=== PATIENT | female | born 1945 | race Caucasian/White ===

== ENCOUNTER 2016-10-08 09:19 | Day surgery (SDC) | payer MEDICARE, OTHER ==
[~2016-10-08] VITALS: Ht 154.9 cm; Wt 70.9 kg
[~2016-10-08 09:19] MED LIST: 0.9% SODIUM CHLORIDE 10 ML SYRINGE IVP ONE; 0.9% SODIUM CHLORIDE 10 ML SYRINGE IVP PRN
[2016-10-08] MEDS ORDERED: METOPROLOL TARTRATE 50 MG TABLET PO ONE (09:30)
[2016-10-08] MEDS ORDERED: LISI-661 PO (10:22)
[2016-10-08] MEDS ORDERED: SIMV-261 PO (10:22)
[2016-10-08] MEDS ORDERED: METF500T4 PO (10:22)
[2016-10-08] MEDS ORDERED: NITR.4 SL (10:22)
[2016-10-08] MEDS ORDERED: ISOS30TA6 PO (10:22)
[2016-10-08] MEDS ORDERED: ASPI81 PO (10:22)
[2016-10-08] MEDS ORDERED: SENN8.6T90 PO (10:22)
[2016-10-08] MEDS ORDERED: WARF2 PO (10:22)
[2016-10-08] MEDS ORDERED: ESOM20CA31 PO (10:22)
[2016-10-08] MEDS ORDERED: ATEN50TA PO (10:22)
[2016-10-08] MEDS ORDERED: NITROGLYCERIN 400 MCG/SUBLINGUAL SPRAY 4.9 GM BOTTLE SL ONE (10:31)
[2016-10-08] MEDS ORDERED: METOPROLOL TARTRATE 5 MG/5 ML VIAL ONE (10:31)
[2016-10-08 10:46] LABS: ANION GAP 9 mmol/L (8-16); CALCIUM, TOTAL 8.8 mg/dL (8.8-10.5); CARBON DIOXIDE 28 mmol/L (22-29); CHLORIDE 106 mmol/L (98-107); CREATININE 0.72 mg/dL (0.60-1.30); GLOMERULAR FILTR. RATE CALC > 60 mL/min (>60); POTASSIUM 4.2 mmol/L (3.5-5.1); SODIUM SERUM 143 mmol/L (136-145); UREA NITROGEN, BLOOD 13 mg/dL (7-18)
[2016-10-08] MEDS ORDERED: IOVERSOL 350 MG/ML 150 ML VIAL ONE (11:01)
[2016-10-08] MEDS ORDERED: SODIUM CHLORIDE 0.9% 100 ML ONE (11:02)
== END 2016-10-08 12:15 | disposition home or self-care (01) ==
LOC: SDS 09:19 → EDSTATUS 11:00 → SDS 12:15
PROVIDERS: ATTEND Internal Medicine Cardiovascular Disease
DX: I25.10 Atherosclerotic heart disease of native coronary artery without angina pectoris (principal); I10 Essential (primary) hypertension; E11.9 Type 2 diabetes mellitus without complications; F32.9 Major depressive disorder, single episode, unspecified; I69.954 Hemiplegia and hemiparesis following unspecified cerebrovascular disease affecting left non-dominant side; E78.00 Pure hypercholesterolemia, unspecified; M25.562 Pain in left knee; M25.561 Pain in right knee; M25.552 Pain in left hip; M25.551 Pain in right hip; Z72.89 Other problems related to lifestyle; Z98.890 Other specified postprocedural states; Z88.3 Allergy status to other anti-infective agents; Z90.710 Acquired absence of both cervix and uterus; Z86.79 Personal history of other diseases of the circulatory system
CPT/HCPCS: 36415; 75574; 80048; 93005; J7050; Q9967; J3490